=== PATIENT | male | born 2000 | race Caucasian/White ===

== ENCOUNTER 2025-02-14 05:37 | Inpatient (IN) | payer OTHER ==
[~2025-02-14] VITALS: Ht 185.4 cm; Wt 81.0 kg
--- NOTE | 2025-02-14 06:42 | ED.PDOC ---
Foreign Body HPI Comments 24Y M presents to ED via EMS for chief complaint foreign foreign body sensation to the throat that began yesterday after he consumed heart race. Additional symptom includes vomiting. Pt states he consumed rice at 0730 and then began to spit everything back up. Pt feels that airway is closed off [place] team stated they saw elliott in the pt's throat. Patient initially had is incision of the throat was closing. He was seen by the medical team at [facility] They saw burn to the posterior throat. As the symptoms not resolve after being given viscous lidocaine, who referred him here for further workup and management. Here, he states he feels he has coughed up s ome of the debris in his throat. He was not able to swallow. However, continues to have foreign body sensation. He denies drooling, difficulty breathing. 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, Medications, Allergies Allergies: Coded Allergies: Cefdinir (Verified Allergy, Unknown, 02/14/25) Sodium Benzoate (Verified Allergy, Unknown, 02/14/25) Information Source: Patient, Emergency Med Personnel Mode of Arrival: EMS Brought in by: EMS Timing: Hours Duration: Since onset Severity: Mild Ability to handle secretions: Difficult Prehospital treatment: Other (glucagon IV and lidocaine) Location: Throat Context: Accidental Foreign Body: Unknown Removal: Was not attempted Associated signs and symptoms: None Past Medical History PAST MEDICAL HISTORY: Denies Surgical History: Denies all surgeries Family History Family History: Unknown Social History Smoker: Non-Smoker Alcohol: Denies ETOH Use Drugs: Denies Drug Use Lives In: Home Constitutional: denies: chills, diaphoresis, fatigue, fever, malaise, sweats, weakness, others EENTM: denies: blurred vision, double vision, ear bleeding, ear discharge, ear drainage, ear pain, ear ringing, eye pain, eye redness, hearing loss, mouth pain, mouth swelling, nasal discharge, nose bleeding, nose congestion, nose pain, photophobia, tearing, throat pain, throat swelling, voice changes, others Respiratory: denies: cough, hemoptysis, orthopnea, SOB at rest, shortness of breath, SOB with excertion, stridor, wheezing, others Cardiovascular: denies: chest pain, dizzy spells, diaphoresis, Dyspnea on exertion, edema, irregular heart beat, left arm pain, lightheadedness, palpitations, PND, syncope, others Gastrointestinal: reports: dysphagia; denies: abdomen distended, abdominal pain, blood streaked bowels, constipated, diarrhea, difficulty swallowing, hematemesis, melena, nausea, poor appetite, poor fluid intake, rectal bleeding, rectal pain, vomiting, others Genitourinary: denies: burning, dysuria, flank pain, frequency, hematuria, incontinence, penile discharge, penile sore, pain, testicle pain, testicle swelling, urgency, others Neurological: denies: dizziness, fainting, headache, left sided numbness, left sided weakness, numbness, paresthesia, pre-existing deficit, right sided numb ness, right sided weakness, seizure, speech problems, tingling, tremors, weakness, others Musculoskeletal: denies: back pain, gout, joint pain, joint swelling, muscle pain, muscle stiffness, neck pain, others Integumetry: denies: bruises, change in color, change in hair/nails, dryness, laceration, lesions, lumps, rash, wounds, others Allergic/Immunocompromised: denies: Difficulty Healing, Frequent Infections, Hives, Itching, others Hematologic/Lymphatic: denies: anemia, blood clots, easy bleeding, easy bruising, swollen glands, others Endocrine: denies: excessive hunger, excessive sweating, excessive thirst, excessive urination, flushing, intolerance to cold, intolerance to heat, unexplained weight gain, unexplained weight loss, others Psychiatric: denies: anxiety, bipolar disorder, depression, hopeless, panic disorder, schizophrenia, sleepless, suicidal, others All Other Systems: Reviewed and Negative Physical Exam General Appearance: No Apparent Distress, Normal HEENT: Normal ENT Inspection, PERRL/EOMI, Pharynx Normal, TMs Normal Neck: Full Range of Motion, Non-Tender, Normal, Normal Inspection Respiratory: Chest Non-Tender, Lungs Clear, No Accessory Muscle Use, No Respiratory Distress, Normal Breath Sounds Cardiovascular: No Edema, No Murmur, No Gallop, Normal Peripheral Pulses, Regular Rate/Rhythm Breast Exam: Deferred Gastrointestinal: No Organomegaly, Non Tender, Normal Bowel Sounds, Soft Genitalia: Deferred Pelvic: Deferred Rectal: Deferred Extremities: No calf tenderness, Normal capillary refill, Normal inspection, Normal range of motion, Non-tender, No pedal edema Musculoskeletal : Apperance: Normal Neurologic: Alert, 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 Was a procedure done?: No FB Differential Dx Differential Diagnosis: Airway Obstruction, Foreign Body X-Ray, Labs, Meds, VS Vital Signs Date Time Temp Pulse Resp B/P (MAP) Pulse Ox O2 Delivery O2 Flow Rate FiO2 02/14/25 05:37 97.7 63 19 129/66 (87) 99 97.7 [place] [address] Ph: [phone] DIAGNOSTIC IMAGING Diagnostic Imaging Report : [id number] Signed PATIENT: BETTINA BLAIR ACCT: [id number] UNIT: [id number] : 2000 LOC: ER ROOM / BED: / AGE / SEX: 24 / M ADM STATUS: REG ER SERVICE 0633 ORDERING PHYSICIAN: JARRETT HUMPHREY MD PROCEDURE(s): NKICT - NECK WITHOUT CONTRAST REASON: r/o fb in throat ORDER NUMBER(s): [id number], ACCESSION NUMBER(s): [id number] EXAM: CT NECK WITHOUT CONTRAST HISTORY: r/o fb in throat None TECHNIQUE: Axial images were obtained and reformatted in coronal and sagittal planes. All CT scans at this medical facility are performed using dose modulation techniques as appropriate to a performed exam including the following: Automated exposure control was utilized; adjustment of the MA and/or KV according to patient size; and use of iterative reconstruction technique. CT Dose: CTDI volume is 22.42 mGy. Dose-length product is 628.42 mGy*cm FINDINGS: The airways are patent. Some fluid/ingested material noted in the lumen of the proximal esophagus. Epiglottis is normal in morphology. Aryepiglottic folds, tonsils and adenoid are grossly unremarkable in this unenhanced study. Thyroid gland is slightly heterogeneous. Lung apices are clear. Prevertebral soft tissues are normal in thickness. No acute osseous abnormality. No cervical lymphadenopathy. IMPRESSION: 1. The airways are patent. Some fluid/ingested material noted in the lumen of the proximal esophagus. ATED BY: ROSALINA REYES MD DICTATED DATE/TIME: 02/14/25728 SIGNED BY: ROSALINA REYES MD SIGNED DATE/TIME: 02/14/25728 CC: Time of 1ST Reevaluation: 06:50 Reevaluation 1ST: Unchanged Patient Education/Counseling: Diagnosis, Treatment Family Education/Counseling: No Family Present Departure 1 Departure Time of Disposition: 07:52 Impression: Primary Impression: Esophageal foreign body Additional Impression: Dysphagia Disposition: 09 ADMITTED INPATIENT Condition: Fair Critical Care Note Critical Care Time?: No Stability Stability form required: No Heart Score Heart Score: Heart Score Response (Comments) Value History N/A 0 EKG N/A 0 Age N/A 0 Risk Factors N/A 0 Troponin N/A 0 Total 0 I personally scribed for JARRETT HUMPHREY MD ([email or web address]) on 02/14/25 at 06:42. Electronically submitted by Cierra Hooks ([employer]). I personally scribed for JARRETT HUMPHREY MD ([email or web address]) on 02/14/25 at 07:39. Electronically submitted by Cierra Hooks ([employer]). JARRETT HUMPHREY MD Feb 14, 2025 06:42
--- NOTE | 2025-02-14 07:31 | DVH ---
EXAM: CT NECK WITHOUT CONTRAST HISTORY: r/o fb in throat None TECHNIQUE: Axial images were obtained and reformatted in coronal and sagittal planes. All CT scans at this medical facility are performed using dose modulation techniques as appropriate to a performed e xam including the following: Automated exposure control was utilized; adjustment of the MA and/or KV according to patient size; and use of iterative reconstruction technique. CT Dose: CTDI volume is 2 2.42 mGy. Dose-length product is 628.42 mGy*cm FINDINGS: The airways are patent. Some fluid/ingested material noted in the lumen of the proximal esophagus. E piglottis is normal in morphology. Aryepiglottic folds, tonsils and adenoid are grossly unremarkable in this unenhanced study. Thyroid gland is slightly heterogeneous. Lung apices are clear. Prevertebra l soft tissues are normal in thickness. No acute osseous abnormality. No cervical lymphadenopathy. IMPRESSION: 1. The airways are patent. Some fluid/ingested material noted in the lumen of the proximal esophagus.
[2025-02-14 08:00] VITALS: PULSE 55; RESP 16; O2SAT 98
[2025-02-14] MEDS: MAALOX PLUS or MAALOX 30 ML PO ONE (08:37)
[2025-02-14] MEDS: ONDANSETRON ODT 4 MG TAB PO ONE (08:37)
[2025-02-14] MEDS ORDERED: HYDROcodone-ACET 5/325MG TAB PO PRN (09:00)
[2025-02-14] MEDS ORDERED: ONDANSETRON HCL 4 MG/2 ML VIAL IV PRN (09:00)
[2025-02-14] MEDS ORDERED: ACETAMINOPHEN 325 MG TAB PO PRN (09:00)
--- NOTE | 2025-02-14 09:34 | DVHHP2 ---
History of Present Illness Reason for Visit: Foreign body sensation History of Present Illness Durga Calzada is a 24-year-old male with past medical history of tonsillectomy and head laceration as a kid with stitches placed in who presents to the ED with foreign body sensation. Patient reports that at 7:30 a.m. last night he ingested some hot rice and states that he has been vomiting nonstop since last night. Patient states that he was at [place] in the hospital and was given lidocaine to help with the sensation with no relief. Patient was then transferred here for evaluation for a possible endoscopy. Currently at bedside on upon examination no dysphagia noted, no salivating noted, denies chest pain, shortness of breath, fever, chills, recent trauma or injury, recent illnesses, or diarrhea. [place] hardly [place]. Past Surgical History: Other (Head stitches), Tonsillectomy Family History: Other (Dad with heart disease) Smoke: No ALCOHOL: none Lives: Other Domestic Violence: Neg Review of Systems Respiratory: Other (Spitting up saliva) Allergies: Coded Allergies: Cefdinir (Verified Allergy, Unknown, 02/14/25) Sodium Benzoate (Verified Allergy, Unknown, 02/14/25) Exam Vital Signs Vital Signs Date Time Temp Pulse Resp B/P (MAP) Pulse Ox O2 Delivery O2 Flow Rate FiO2 02/14/25 08:00 65 02/14/25 05:37 97.7 19 129/66 (87) 99 97.7 General Appearance: Alert, Oriented X3, Cooperative, No acute distress HEENT: Atraumatic, PERRLA, EOMI, Mucous membr. moist/pink Respiratory: Clear to auscultation, Normal air movement Cardiovascular: Regular rate, Normal S1, Normal S2, No murmurs Abdominal: Normal bowel sounds, Soft, No tenderness, No hepatospenomegaly, No masses Extremities: No clubbing, No cyanosis, No edema, Normal pulses, No tenderness/swelling Skin: No significant lesion Neuro: Normal speech, Strength at 5/5 X4 ext, Normal tone, Sensation intact Psych/Mental Status: Mental status NL, Mood NL Labs/Xrays EXAM: CT NECK WITHOUT CONTRAST HISTORY: r/o fb in throat None TECHNIQUE: Axial images were obtained and reformatted in coronal and sagittal planes. All CT scans at this medical facility are performed using dose modulation techniques as appropriate to a performed exam including the following: Automated exposure control was utilized; adjustment of the MA and/or KV according to patient size; and use of iterative reconstruction technique. CT Dose: CTDI volume is 22.42 mGy. Dose-length product is 628.42 mGy*cm FINDINGS: The airways are patent. Some fluid/ingested material noted in the lumen of the p roximal esophagus. Epiglottis is normal in morphology. Aryepiglottic folds, tonsils and adenoid are grossly unremarkable in this unenhanced study. Thyroid gland is slightly heterogeneous. Lung apices are clear. Prevertebral soft tissues are normal in thickness. No acute osseous abnormality. No cervical lymphadenopathy. IMPRESSION: 1. The airways are patent. Some fluid/ingested material noted in the lumen of the proximal esophagus. Assessment/Plan Assessment/Plan Assessment Foreign body sensation Intractable Vomiting History of tonsillectomy History of head laceration with stitches Plan Admit to med surge Antiemetics Pain management Chest x-ray ordered Per patient no home medications taken Discussed plan of care with patient and nurse DVT prophylaxis-not indicated patient ambulating PUD prophylaxis not indicated patient no history of GERD or GI bleed GI consult for endoscopy Please resume diet order once endoscopy or GI provider has seen patient and cleared Plan discussed with: Patient My Orders Orders - YOLI TORRES Procedure Category Date Status Time Admit ADMIT 02/14/25 Verified 08:52 Allergies CHRISSIE 02/14/25 Verified 08:52 Code Status CODE 02/14/25 Verified 08:52 Hydrocodone-Acet PHA 02/14/25 Verified 5/325mg Tab ([place] 09:00 Ondansetron Hcl PHA 02/14/25 Verified (Zofran) 09:00 Complete Blood Count LAB 02/15/25 Verified 04:00 Comprehensive LAB 02/15/25 Verified Metabolic Panel 04:00 Cardiac DIET 02/14/25 Verified Diet-2gna,Lofat,Lochol Breakfast Acetaminophen Tablet PHA 02/14/25 Verified (Tylenol Tablet) 09:00 Date of Service: Feb 14, 2025 Billing Provider: YOLI TORRES Common Visit Codes: [id number] INP/OBS CARE (HIGH) YOLI TORRES Feb 14, 2025 09:34
--- NOTE | 2025-02-14 10:58 | DVH ---
CHEST RADIOGRAPH Indication: foreign body ro asp Technique: Single frontal view of the chest was obtained Comparison: None FINDINGS: Lines and Tubes: None Lungs: No focal consolidation. Pleura: No effusion. No pneumothorax. Cardiomediastinal contours: Unremarkable Bones: No acute osseous abnormality. IMPRESSION: No acute cardiopulmonary disease.
--- NOTE | 2025-02-14 11:33 | DVHINCON2 ---
GI Consult Consult Note GI consult note Date of Consultation: 02/15/2020 Chief Complaint: Foreign body in throat Referring Physician: Dr. pro H&P: 24-year-old male transferred from [facility] with complaints of foreign body in throat Patient complains of symptoms starting last night after eating very hot rice Patient feels pain with swallowing. But is able to swallow Most of the symptoms are in his upper esophagus and throat area No nausea or vomit. No abdominal pain. No melena or red blood in stool Patient denies history of GERD. No cigarette smoking or alcohol use No EGD in past Past Medical History: Past Surgical History: Tonsillectomy Social History: NO smoking, drinking ETOH and use of illegal drugs. Family History: Noncontributory Review of Systems: Constitutional: no fever, chill, weight loss HEENT: no eye pain, no hearing loss, no oral lesion, no scleral icterus Heart: no chest pain, no chest pressure Lung: no cough, no dyspnea with exertion Abdomen: see HPI Physical exam: General: NAD, AAOX3 Chest: lung bell clear to auscultation Heart: RRR, no murmur Abdomen: non-distended, no tenderness to palpation, +BS Labs: Labs Test 02/14/25 11:09 Range/Units Imaging: Neck CT IMPRESSION: 1. The airways are patent. Some fluid/ingested material noted in the lumen of the proximal esophagus. Assessment: Dysphagia Odynophagia Foreign body sensation Plan: Discussed with Dr. Masters - Pt will be scheduled for an EGD today 02/14/2025. Pt was informed of the risks (bleeding, infection, perforation, reaction to sedation medications and cardiopulmonary arrest) and benefit and is agreeable to undergo the procedures. Discussed plan with patient and RN Thank you for this consult Date of Service: Feb 14, 2025 Billing Provider: MARIBETH KAUR Common Visit Codes: CONSULT ONLY Consultation Codes: [id number] CONSULT <60MIN MARIBETH KAUR Feb 14, 2025 11:33
[2025-02-14 11:51] LABS: Anion Gap 11 (5-15); Carbon Dioxide 26 mmol/L (20-31); Chloride 104 mmol/L (98-107); Sodium 141 mmol/L (136-145)
[2025-02-14 11:52] LABS: Calcium 9.5 mg/dL (8.7-10.4); Potassium 3.3 mmol/L (3.5-5.1)
[2025-02-14 11:57] LABS: BUN/Creatinine Ratio 8.8 (10.0-20.0); Blood Urea Nitrogen 9 mg/dL (9-23); Glucose 91 mg/dL (74-106)
[2025-02-14] MEDS ORDERED: LIDOCAINE 2% (LOCAL ANESTH.) PF 5ml SDV ONE (12:20)
[2025-02-14] MEDS ORDERED: PROPOFOL 10 MG/ML 20 ML IV ONE (12:20)
[2025-02-14 12:34] VITALS: PULSE 68; RESP 20; O2SAT 99
--- NOTE | 2025-02-14 12:45 | DVHOP2 ---
Operative Report DATE OF OPERATION: 02/14/25 PROCEDURE: Upper Endoscopy with biopsy. PREOPERATIVE INDICATION: The patient is a 24 -year-old male undergoing endoscopy for foreign body sensation in his throat after eating very hot rice POSTOPERATIVE DIAGNOSES: 1. There was a focal area of bleb formation and esophagitis in the proximal to mid esophagus from which biopsies were obtained 2. Minimal gastroduodenitis with some duodenal bulbar erosions otherwise normal examination up to the 2nd and 3rd part of the duodenum with no foreign body in the esophagus PROCEDURE PERFORMED BY: Martinez Masters GI NURSE: Erick SCOPE: Olympus videoendoscope. ASA CLASS: 2. PREOPERATIVE MEDICATIONS: Milo Gomez PROCEDURE IN DETAIL: After obtaining an informed consent, the patient was placed on left lateral decubitus position. The patient was then sedated with the above medications. A bite block was placed between his teeth. The endoscope was then passed through the oropharynx, into the esophagus, and through the stomach and pylorus up to the second and third part of the duodenum. The endoscope was then withdrawn. The 2nd and 3rd part of the duodenum were normal and the duodenal bulb showed mild duodenitis with erosions The pre-pyloric area antrum showed minimal gastritis. On retroflexion the fundus cardia and angularis were normal. Duodenal and gastric biopsies were obtained. The endoscope was then withdrawn into the distal esophagus where there was no hiatal hernia There was no evidence of reflux esophagitis. There was a focal area of bleb formation and some esophagitis in the mid to proximal esophagus This was likely the area related to where the heart rice may have lodged. There was no residual foreign body. Biopsies were obtained from this area The remaining proximal esophagus and oropharynx were unremarkable The patient tolerated the procedure well without difficulty. COMPLICATIONS : None SPECIMENS: Duodenal biopsies Gastric biopsies Proximal esophageal biopsies DISPOSITION: Transfer back to the floor Stable PLAN: 1. Await for biopsy result 2. Will place pt on Protonix 40 mg bid IV 3. Carafate suspension 1 g p.o. 4 times a day 4. Start with full liquid diet advance to soft mechanical 5. Patient will be given reassurance and support MARTINEZ MASTERS MD Feb 14, 2025 12:45
[2025-02-14 13:29] LABS: Urine Bacteria None Seen /hpf (None Seen)
[2025-02-14 13:48] LABS: Urine Blood Negative /uL (Negative); Urine Clarity Clear (Clear); Urine Color Yellow (Yellow); Urine Mucus FEW (None Seen); Urine Protein, UAD Negative (Negative); Urine Specific Gravity 1.017 (1.001-1.035); Urine Squamous Epithelial Cell FEW /hpf (<5); Urine Urobilinogen 3 mg/dL (Negative); Urine WBC 1 /HPF (0-3); Urine pH 6.5 (5.0-9.0)
[2025-02-14 14:37] VITALS: BP 125/73; PULSE 53; RESP 16; TEMP 97.5; O2SAT 100
[2025-02-14 16:53] VITALS: BP 132/74; PULSE 65; RESP 17; TEMP 98.4; O2SAT 97
[2025-02-14] MEDS: SUCRALFATE 1 GM/10 ML ORAL SUSP PO SCH (17:43)
[2025-02-14 21:00] VITALS: BP_SYST 128; BP_SYST 139; BP_DIAS 58; BP_DIAS 97; PULSE 105; PULSE 59; RESP 17; RESP 18; TEMP 97.3; TEMP 97.7; O2SAT 93; O2SAT 97
[2025-02-14] MEDS: PANTOPRAZOLE 40 MG/10 ML VIAL INJ IV SCH (22:01)
[2025-02-15 01:00] VITALS: BP 122/64; PULSE 65; RESP 18; TEMP 97.7; O2SAT 94
[2025-02-15 05:00] VITALS: BP 113/64; PULSE 74; RESP 18; TEMP 97.8; O2SAT 94
[2025-02-15 07:49] LABS: Basophils # (auto) 0 10 ^3/uL (0-0.2); Basophils % (auto) 0.3 % (0.0-2.0); Eosinophils # (auto) 0.1 10 ^3/uL (0-0.8); Eosinophils % (auto) 1.3 % (0.0-7.0); Hemoglobin 15.9 g/dL (13.5-17.5); Lymphocytes # (auto) 1.6 10 ^3/uL (0.4-5.4); Lymphocytes % (auto) 16.3 % (10.0-50.0); Mean Corpuscular Hemoglobin 31.5 pg (28.0-32.0); Mean Corpuscular Hgb Conc. 35.4 g/dL (32.0-36.0); Mean Corpuscular Volume 89.1 fL (80.0-100.0); Monocytes # (auto) 0.6 10 ^3/uL (0-1.3); Monocytes % (auto) 6.5 % (0.0-12.0); Neutrophils # (auto) 7.3 10 ^3/uL (1.6-8.6); Neutrophils % (auto) 75.6 % (37.0-80.0); Nucleated Red Blood Cells % 0.1 %; Platelet Count (auto) 171 10^3/uL (140-450); Red Blood Cells 5.05 10^6/uL (4.5-5.90); Red Cell Distribution Width 12.6 % (11.8-14.3); White Blood Cell 9.7 10^3/uL (4.4-10.8)
[2025-02-15 08:13] LABS: Alanine Aminotransferase 18 U/L (7-40); Albumin 4.4 g/dL (3.2-4.8); Alkaline Phosphatase 88 U/L (46-116); Anion Gap 9 (5-15); Aspartate Aminotransferase 19 U/L (13-40); BUN/Creatinine Ratio 5.3 (10.0-20.0); Calcium 9.7 mg/dL (8.7-10.4); Carbon Dioxide 26 mmol/L (20-31); Chloride 104 mmol/L (98-107); Glucose 86 mg/dL (74-106); Potassium 4.2 mmol/L (3.5-5.1); Sodium 139 mmol/L (136-145)
[2025-02-15 08:16] LABS: Bilirubin, Total 1.4 mg/dL (0.2-1.0); Blood Urea Nitrogen 6 mg/dL (9-23)
[2025-02-15 09:00] VITALS: BP 118/57; PULSE 67; RESP 16; TEMP 99.1; O2SAT 95
--- NOTE | 2025-02-15 12:27 | DVHDS2 ---
Discharge Summary Date of Admission Feb 14, 2025 at 08:52 Date of Discharge: Feb 15, 2025 Admitting Diagnosis Foreign body sensation in the throat Labs/Diagnostic Data: Laboratory Results Test 02/15/25 07:31 02/14/25 08:29 White Blood Count 9.7 10^3/uL (4.4-10.8) Red Blood Count 5.05 10^6/uL (4.5-5.90) Hemoglobin 15.9 g/dL (13.5-17.5) Hematocrit 45.0 % (41.0-53.0) Mean Corpuscular Volume 89.1 fL (80.0-100.0) Mean Corpuscular Hemoglobin 31.5 pg (28.0-32.0) Mean Corpuscular Hemoglobin Concent 35.4 g/dL (32.0-36.0) Red Cell Distribution Width 12.6 % (11.8-14.3) Platelet Count 171 10^3/uL (140-450) Mean Platelet Volume 8.2 fL (6.9-10.8) Neutrophils (%) (Auto) 75.6 % (37.0-80.0) Lymphocytes (%) (Auto) 16.3 % (10.0-50.0) Monocytes (%) (Auto) 6.5 % (0.0-12.0) Eosinophils (%) (Auto) 1.3 % (0.0-7.0) Basophils (%) (Auto) 0.3 % (0.0-2.0) Neutrophils # (Auto) 7.3 10 ^3/uL (1.6-8.6) Lymphocytes # (Auto) 1.6 10 ^3/uL (0.4-5.4) Monocytes # (Auto) 0.6 10 ^3/uL (0-1.3) Eosinophils # (Auto) 0.1 10 ^3/uL (0-0.8) Basophils # (Auto) 0 10 ^3/uL (0-0.2) Nucleated Red Blood Cells 0.1 % Sodium Level 139 mmol/L (136-145) Potassium Level 4.2 mmol/L (3.5-5.1) Chloride Level 104 mmol/L (98-107) Carbon Dioxide Level 26 mmol/L (20-31) Anion Gap 9 (5-15) Blood Urea Nitrogen 6 mg/dL (9-23) Creatinine 1.13 mg/dL (0.700-1.30) Glomerular Filtration Rate Calc 93 mL/min (>90) BUN/Creatinine Ratio 5.3 (10.0-20.0) Serum Glucose 86 mg/dL (74-106) Calcium Level 9.7 mg/dL (8.7-10.4) Total Bilirubin 1.4 mg/dL (0.2-1.0) Aspartate Amino Transferase (AST) 19 U/L (13-40) Alanine Aminotransferase (ALT) 18 U/L (7-40) Alkaline Phosphatase 88 U/L (46-116) Total Protein 7.0 g/dL (5.7-8.2) Albumin 4.4 g/dL (3.2-4.8) Urine Color Yellow (Yellow) Urine Clarity Clear (Clear) Urine pH 6.5 (5.0-9.0) Urine Specific [place] 1.017 (1.001-1.035) Urine Protein Negative (Negative) Urine Ketones 2+ (Negative) Urine Blood Negative /uL (Negative) Urine Nitrite Negative (Negative) Urine Bilirubin Negative (Negative) Urine Urobilinogen 3 mg/dL (Negative) Urine Leukocyte Esterase Negative /uL (Negative) Urine RBC <1 /hpf (0 - 3) Urine Microscopic WBC 1 /HPF (0-3) Urine Squamous Epithelial Cells Few /hpf (<5) Urine Bacteria None seen /hpf (None Seen) Urine Mucus Few (None Seen) Urine Glucose Normal mg/dL (Normal) Other Laboratory Tests 02/15/25 07:31 Brief Hx & Hospital Course: 24-year-old gentleman brought to the emergency room because of feeling foreign body sensation in his throat after he ingested very hot rice for dinner the night before. Apparently he will not the rise in the microwave and part of it was still very hot when he swallowed it burning his esophagus. GI consultation obtained. EGD done and showed no foreign body. It showed a bleb in the esophagus and some mild gastroduodenitis. Patient feeling better and able to eat and drink and [place] Consults/Reason for consult GI/status post EGD/mild duodenal gastritis and esophageal bleb likely secondary to the burn Condition at Discharge: Good Final Diagnosis/Problems List Esophageal burn Mild gastroduodenitis Discharge Disposition: Home Discharge Instruct/Medications Diet: See Comment (No spicy food or heart food for a week and advance as tolerated from liquid to solid) Activity: No Restrictions, As Tolerated Follow Up/Referral: PCP within one week GI within Medications: Protonix 40 mg daily for 30 days Discharge Statement: "Patient was advised to return to the ER or call 911 if any headaches, dizziness, shortness of breath, chest pain, abdominal pain, bleeding, fevers, or worsening of medical condition. Patient was counseled about treatment plan, medications, possible side effects, patientverbalized understanding. All questions were answered to the best of my ability. This discharge took greater then 30 minutes in planning, reviewing documentation, counseling the patient, and discussing with other team members." ASSESSMENT ASSESSMENT Assessment Date of Service: Feb 15, 2025 Billing Provider: SKYLER NICK MD Common Visit Codes: [id number] DISCH DAY <30MIN SKYLER NICK MD Feb 15, 2025 12:27
[2025-02-15] MEDS ORDERED: PANT40TA2 PO (12:28)
[2025-02-15 13:00] VITALS: BP 113/64; PULSE 74; RESP 17; TEMP 98.4; O2SAT 97
[2025-02-15 14:26] VITALS: BP 113/64; PULSE 74; RESP 17; TEMP 98.4; O2SAT 97
[2025-02-15 14:51] VITALS: BP 113/64; PULSE 74; RESP 17; TEMP 98.4; O2SAT 97
--- NOTE | 2025-02-15 23:17 | DVHPN2 ---
Progress Note - Dictate Date Seen: Feb 15, 2025 (Late entryPatient seen at bedside at 2:00 p.m.) Medical Necessity Reason Pt with a Central, PICC or Fol: No Subjective No new complaints, foreign body sensation has improved almost resolved Patient is tolerating a diet He is out of bed to chair vital signs Vital Sign Date Time Temp Pulse Resp B/P (MAP) Pulse Ox O2 Delivery O2 Flow Rate FiO2 02/15/25 14:51 98.4 74 17 113/64 (80) 97 98.4 02/15/25 07:40 Room Air* 0 21 Total Intake and Output 02/14/25 02/14/25 02/15/25 15:00 23:00 07:00 Intake Total 25 ml 380 ml 240 ml Output Total 1 ml Balance 25 ml 379 ml 240 ml objective General: NAD, AAOX3 Chest: lung bell clear to auscultation Heart: RRR, no murmur Abdomen: non-distended, no tenderness to palpation, +BS laboratory and microbiology Laboratory Tests 02/15/25 07:31 Test 02/15/25 07:31 Range/Units Serum Glucose 86 74-106 mg/dL Problems(with codes): (1) Esophageal foreign body (2) Dysphagia Prognosis Plan Patient was given reassurance Discharge planning is in progress Continue PPI Follow up with GI clinic as needed EGD findings reviewed with patient Plan discussed with: Patient MARTINEZ DIAZ MD Feb 15, 2025 23:17
== END 2025-02-15 15:09 | disposition home or self-care (01) | DRG 392 ==
LOC: ER 05:37 → EDBD 05:37 → OVERFLOW 08:52 → WEST WING 14:20
PROC: 0DB68ZX Excision of Stomach, Via Natural or Artificial Opening Endoscopic, Diagnostic (ICD-10-PCS; 2025-02-14)
PROC: 0DB18ZX Excision of Upper Esophagus, Via Natural or Artificial Opening Endoscopic, Diagnostic (ICD-10-PCS; 2025-02-14)
PROC: 0DB98ZX Excision of Duodenum, Via Natural or Artificial Opening Endoscopic, Diagnostic (ICD-10-PCS; principal; 2025-02-14 12:20)
DX: K20.90 Esophagitis, unspecified without bleeding (principal); T28.1XXA Burn of esophagus, initial encounter; K29.90 Gastroduodenitis, unspecified, without bleeding; K29.80 Duodenitis without bleeding; K29.70 Gastritis, unspecified, without bleeding; Z88.1 Allergy status to other antibiotic agents; Z88.8 Allergy status to other drugs, medicaments and biological substances; Z79.899 Other long term (current) drug therapy; X08.8XXA Exposure to other specified smoke, fire and flames, initial encounter; Y93.89 Activity, other specified; Y92.89 Other specified places as the place of occurrence of the external cause; Y99.8 Other external cause status
CPT/HCPCS: 36415; 70490; 71045; 80048; 80053; 81001; 85025; 96374; G0378; J2003; J2470; J2704